=== PATIENT | female | born 1950 | race Caucasian/White ===

== ENCOUNTER 2021-11-09 00:21 | Day surgery (SDC) | payer MEDICARE, SELFPAY ==
[2021-10-21 13:48] VITALS: BMI 29.2
--- NOTE | 2021-11-06 09:45 | SUR.PREOP ---
0945 Spoke with patient and patient is taking Sutab for her prep.
[2021-11-09 06:20] VITALS: BMI 29.2
[2021-11-09] MEDS: LACTATED RINGERS 1,000 ML 150 ML IV CONT (06:32)
[2021-11-09 06:33] VITALS: BP 152/91; PULSE 94; RESP 16; TEMP 36.1; O2SAT 100
--- NOTE | 2021-11-09 07:22 | PM.HPGS ---
History of Present Illness History of Present Illness Consent: Risks, benefits, and alternatives have been discussed and questions answered. Patient agrees to proceed with procedure. Chief complaint: neoplasm screening Narrative: Federica Smith is a 71 year old female here for screening colonoscopy, last one 10 years ago Review of Systems Constitutional: Constitutional: Denies headache(s) and Denies weakness Eyes: Eyes: Denies blurry vision ENT: Reports Normal hearing present, Denies headache(s) and Denies neck pain Cardiovascular: Cardiovascular: Denies chest pain and Denies dyspnea Respiratory: Respiratory: Denies dyspnea Gastrointestinal: Gastrointestinal: Reports no additional gastrointestinal complaints Genitourinary: Genitourinary: Denies dysuria Musculoskeletal: Musculoskeletal: Denies neck pain Integumentary/Breasts: Skin/Breast: Denies dry skin Neurologic: Reports Normal hearing present, Denies headache(s) and Denies weakness Psychiatric: Psychiatric: Denies anxiety Endocrine: Endocrine: Denies change in body appearance Hematologic/Lymphatic: Hematologic/Lymphatic: Denies easy bleeding Allergic/Immunologic: Allergic/Immunologic: Denies urticaria PMFSH Past Medical History Medical History (Updated 11/09/21 @ 07:23 by Evelio Beth MD) Colon cancer screening Social History Social History Smoking status: Never smoker Alcohol intake: current Drinks per week: 2 Alcohol use details: 2 glasses of wine/week Substance use: never Substance use type: does not use Living arrangements: with family Spiritual care concerns: No Meds Home Medications and Allergies Home Medications Medication Instructions Recorded Confirmed Type sodium sul 1.479 gram-potas ch See Rx Instructions PO PER PKG DIR 08/31/21 10/21/21 Rx 0.188 gram-magnes sul 0.225 gram #24 tabs tablet (Sutab) atenolol 25 mg tablet 25 mg PO DAILY 10/21/21 10/21/21 History atorvastatin 20 mg tablet 20 mg PO HS 10/21/21 10/21/21 History levothyroxine 75 mcg tablet 75 mcg PO DAILY 10/21/21 10/21/21 History Allergies Allergy/AdvReac Type Severity Reaction Status Date / Time Penicillins Allergy Intermediate Hives Verified 10/21/21 14:06 Vital Signs Vital Signs - 24 hr 11/09/21 06:33 Temperature 97.0 F L Pulse Rate 94 Respiratory Rate 16 Blood Pressure 152/91 H Pulse Oximetry 100 Oxygen Delivery Room Air Exam Const: General: comfortable and no acute distress HENMT: General nose exam: Normal nares present Eyes: General: appearance normal, both eyes and all related structures Neck: Neck: no JVD Resp: Auscultation: clear to auscultation bilaterally Cardio: Rate: regular rate Rhythm: regular rhythm GI: Inspection: non-distended GI Palp: Yes Soft to palpation Skin: General skin exam: normal color Neuro: General: gait normal Speech: normal speech Extrem: General: normal to inspection Psych: Mental Status: mental status grossly normal Assessment and Plan Assessment and plan (1) Colon cancer screening: Code(s): Z12.11 - Encounter for screening for malignant neoplasm of colon Status: Acute Assessment and Plan: colonoscopy
--- NOTE | 2021-11-09 07:24 | P.PNAN_ITS ---
Anes - Initial Pre Proc Eval Procedure: Operation Date: 11/09/21 07:30 Proposed Procedures p Screening Colonoscopy - Evelio Beth MD Date/Time: 11/09/21 07:24 Surgeon: Evelio Beth MD Pre Op Diagnosis: neoplasm screening Patient Data Age: 71 Gender: F Height: 1.57 m Weight: 72.6 kg Last Vital Signs Temp 97.0 F L 11/09/21 06:33 Pulse 94 11/09/21 06:33 Resp 16 11/09/21 06:33 BP 152/91 H 11/09/21 06:33 Pulse Ox 100 11/09/21 06:33 O2 Del Method Room Air 11/09/21 06:33 Allergies Allergy/AdvReac Type Severity Reaction Status Date / Time Penicillins Allergy Intermediate Hives Verified 10/21/21 14:06 Home Medications Medication Instructions Recorded Confirmed Type sodium sul 1.479 gram-potas ch See Rx Instructions PO PER PKG DIR 08/31/21 10/21/21 Rx 0.188 gram-magnes sul 0.225 gram #24 tabs tablet (Sutab) atenolol 25 mg tablet 25 mg PO DAILY 10/21/21 10/21/21 History atorvastatin 20 mg tablet 20 mg PO HS 10/21/21 10/21/21 History levothyroxine 75 mcg tablet 75 mcg PO DAILY 10/21/21 10/21/21 History Patient hx anesthesia problems: none Family hx anesthesia problems: none Results Review: All pre-operative results and documents have been reviewed as part of the pre- operative evaluation. [facility] Past Medical History Medical History (Updated 11/09/21 @ 07:23 by Evelio Beth MD) Colon cancer screening Social History Social History Smoking status: Never smoker Alcohol intake: current Drinks per week: 2 Alcohol use details: 2 glasses of wine/week Substance use: never Substance use type: does not use Living arrangements: with family Spiritual care concerns: No Anes - Eval Final PreProcedure Day of Procedure 11/09/21 07:24 Patient weight: normal Heart: regular rate and rhythm Lungs: clear to auscultation Airway: Mallampati scale class II Neurological: alert and oriented Last oral intake: >/= 8 hours ASA classification: II Emergent: no Anesthetic plan: proceed Anesthesia type and monitoring: general GIVS and standard monitoring Results Review: All pre-operative results and documents have been reviewed as part of the pre- operative evaluation. Informed Consent: The patient's anesthetic plan and its attendant risks and benefits were discussed with the patient/family/POA. Questions were solicited and answers provided to the satisfaction of the patient/family/POA.
[2021-11-09 07:49] VITALS: BP 108/62; PULSE 77; RESP 27; O2SAT 97
[2021-11-09 07:59] VITALS: BP 113/67; PULSE 76; RESP 18; O2SAT 97
[2021-11-09 08:09] VITALS: BP 121/75; PULSE 78; RESP 18; O2SAT 99
== END 2021-11-09 08:24 | disposition home or self-care (01) ==
PROVIDERS: PCP Student in an Organized Health Care Education/Training Program; Visit Provider Internal Medicine Gastroenterology
PROC: 0DJD8ZZ Inspection of Lower Intestinal Tract, Via Natural or Artificial Opening Endoscopic (ICD-10-PCS; CPT 45378; principal; 2021-11-09 07:30)
DX: Z12.11 Encounter for screening for malignant neoplasm of colon (principal); E03.9 Hypothyroidism, unspecified
CPT/HCPCS: G0121; J2704; J7120